=== PATIENT | female | born 1960 | race Caucasian/White ===

== ENCOUNTER 2018-10-26 15:07 | Emergency (ER) | payer MEDICAID ==
[~2018-10-26] VITALS: Ht 160 cm; Wt 49.9 kg
[2018-10-26 15:17] VITALS: BP_SYST 98
--- NOTE | 2018-10-26 15:32 | NUR ---
Patient to ER bed 3 to gown for evaluation. Side rails up. Report given to Juve PETERS.
--- NOTE | 2018-10-26 16:00 | NUR ---
Patient with a history of MS came into ED because [facility] trying to open the door but it was too heavy for her so she stated that she fell back back, rolled and hit the back of her head. She states she felt fine but then started having blurry vision. She came into the ED after having the blurry vision. Patient denies N/V/D. Patient states she has a headache of a 3/10. Patient states that she does not feel dizzy. No neuro deficits noted. Patient A&Ox4.
--- NOTE | 2018-10-26 16:05 | NUR ---
ER at bedside examining patient.
[2018-10-26] MEDS ORDERED: IBUPROFEN 400 MG TABLET PO ONE (16:15)
[2018-10-26 17:25] VITALS: BP_SYST 98
--- NOTE | 2018-10-26 17:35 | NUR ---
Patient given written and verbal discharge instructions and verbalizes understanding. ER MD discussed with patient the results and treatment provided. Patient in stable condition. ID arm band removed. Rx of levaquin 500mg given. Patient educated on pain management and to follow up with PMD. Pain Scale 0. Opportunity for questions provided and answered. Medication side effect fact sheet provided.
== END 2018-10-26 17:25 | disposition home or self-care (01) ==
LOC: SED 15:07
DX: E16.2 Hypoglycemia, unspecified (principal); N39.0 Urinary tract infection, site not specified; Z88.8 Allergy status to other drugs, medicaments and biological substances; W18.39XA Other fall on same level, initial encounter; Y93.89 Activity, other specified; Y92.89 Other specified places as the place of occurrence of the external cause; Y99.8 Other external cause status
CPT/HCPCS: 70450-TC; 82962; 99284

== ENCOUNTER 2019-03-30 17:47 | Inpatient (IN) | payer MEDICAID ==
[~2019-03-30] VITALS: Ht 160 cm; Wt 47.6 kg
[2019-03-30 17:50] VITALS: BP_SYST 127
[2019-03-30] MEDS ORDERED: NACL 0.9% 1,000 ML IV ONE (20:19)
[2019-03-30 20:53] LABS: BASOPHILS # (AUTO) 0.1 K/uL (0.0-0.2); BASOPHILS % (AUTO) 0.7 % (0.0-2.0); EOSINOPHILS # (AUTO) 0.2 K/uL (0.0-0.4); EOSINOPHILS % (AUTO) 2.8 % (0.0-4.0); HEMATOCRIT 44.2 % (36-48); HEMOGLOBIN 14.6 g/dL (12.0-16.0); LYMPHOCYTES # (AUTO) 1.6 K/uL (1.0-5.5); LYMPHOCYTES % (AUTO) 22.1 % (20.5-51.5); MEAN CORPUSCULAR HEMOGLOBIN 29 pg (27-31); MEAN CORPUSCULAR HGB CONC 33 % (32-36); MEAN CORPUSCULAR VOLUME 87 fL (79.0-98.0); MONOCYTES # (AUTO) 0.7 K/uL (0.0-1.0); MONOCYTES % (AUTO) 8.8 % (1.7-9.3); NEUTROPHILS # (AUTO) 4.9 K/uL (1.8-7.7); NEUTROPHILS % (AUTO) 65.6 % (40.0-70.0); PLATELET COUNT (AUTO) 301 K/uL (130-430); RED BLOOD CELL COUNT(AUTO) 5.06 MIL/uL (4.2-6.2); WHITE BLOOD COUNT (AUTO) 7.5 K/uL (4.8-10.8)
[2019-03-30 21:09] LABS: CALCIUM 8.9 mg/dL (8.4-11.0); CREATININE 0.54 mg/dL (0.55-1.30); POTASSIUM 3.5 mmol/L (3.5-5.1)
[2019-03-30 21:15] LABS: ALBUMIN 4.1 g/dL (3.4-4.8); TOTAL BILIRUBIN 0.3 mg/dL (0.0-1.0)
[2019-03-30 22:09] LABS: BILIRUBIN,URINE NEGATIVE (NEGATIVE); BLOOD, URINE NEGATIVE (NEGATIVE); CLARITY/URINE CLOUDY (CLEAR); COLOR,URINE YELLOW (YELLOW); GLUCOSE,URINE NEGATIVE (NEGATIVE); KETONES,URINE NEGATIVE (NEGATIVE); LEUKOCYTE ESTERASE ,URINE NEGATIVE (NEGATIVE); NITRITE, URINE POSITIVE (NEGATIVE); PROTEIN URINE NEGATIVE (NEGATIVE); UROBILINOGEN,URINE 0.2 (0.2-1.0)
[2019-03-30 22:18] LABS: INR 1.1 (0.8-1.2); PROTHROMBIN TIME 10.7 SECS (9.5-12.5)
[2019-03-30 22:19] LABS: BACTERIA,URINE MANY /HPF (None Seen); MUCUS,URINE None Seen /LPF (None Seen); RBC,URINE 0-3 /HPF (0-3)
[2019-03-30] MEDS ORDERED: MEROPENEM 1 GM IVPB PREMIX 50 ML IV ONE (23:45)
[2019-03-31] MEDS ORDERED: MEROPENEM 500 MG VIAL IV ONE (00:19)
[2019-03-31] MEDS ORDERED: methylPREDNISolone SOD SUCC/PF 62.5 MG/ML VIAL IVP ONE (01:15)
[2019-03-31] MEDS ORDERED: GABA800T PO (02:14)
[2019-03-31] MEDS ORDERED: BACL20TA PO (02:14)
[2019-03-31] MEDS ORDERED: MODA100T53 PO (02:14)
[2019-03-31] MEDS ORDERED: NOR10 PO (02:14)
[2019-03-31] MEDS ORDERED: TRAM50TA2 PO (02:14)
[2019-03-31] MEDS ORDERED: LISI-209 PO (02:14)
[2019-03-31 02:48] VITALS: BP_SYST 134
[2019-03-31] MEDS ORDERED: GABAPENTIN 400 MG CAPSULE PO ONE (04:15)
[2019-03-31] MEDS ORDERED: OXYBUTYNIN CHLORIDE 5 MG TABLET PO ONE (04:15)
[2019-03-31] MEDS ORDERED: traMADol HCL HCL 50 MG TABLET (ULTRAM) PO ONE (04:15)
[2019-03-31] MEDS ORDERED: OXYB5TAB11 PO (05:20)
[2019-03-31] MEDS ORDERED: LEVO25TA2 PO (05:20)
[2019-03-31] MEDS ORDERED: ACETAMINOPHEN 325 MG TABLET PO PRN (08:15)
[2019-03-31] MEDS ORDERED: ALBUTEROL SULFATE 0.083% 2.5 MG/3 ML VIAL.NEB INH PRN (08:15)
[2019-03-31] MEDS ORDERED: traMADol HCL HCL 50 MG TABLET (ULTRAM) PO PRN (08:15)
[2019-03-31] MEDS ORDERED: ONDANSETRON HCL 4 MG/2 ML VIAL IVP PRN (08:15)
[2019-03-31 08:25] VITALS: BP_SYST 113
[2019-03-31] MEDS: LISINOPRIL 5 MG TABLET PO SCH (10:54)
[2019-03-31] MEDS: amLODIPine BESYLATE 10 MG TABLET PO SCH (10:55)
[2019-03-31] MEDS: OXYBUTYNIN CHLORIDE 5 MG TABLET PO SCH ×3 (10:57→21:56)
[2019-03-31] MEDS: HYDROcodone/ACETAMIN 5-325 MG TAB (NORCO/ VICODIN) PO PRN ×2 (10:57→17:39)
[2019-03-31] MEDS: GABAPENTIN 400 MG CAPSULE PO SCH ×4 (10:58→21:54)
[2019-03-31] MEDS: BACLOFEN 10 MG TABLET PO SCH ×4 (10:59→21:54)
[2019-03-31] MEDS: MODAFINIL 100 MG TABLET (PROVIGIL) PO SCH (11:04)
[2019-03-31] MEDS: MEROPENEM 1 GM IVPB PREMIX 50 ML IV SCH ×3 (12:33→21:57)
[2019-03-31] MEDS: NACL 0.9% 1,000 ML IV SCH ×2 (12:35→17:36)
[2019-03-31 12:48] VITALS: BP_SYST 130
[2019-03-31 15:01] VITALS: BP_SYST 124
[2019-03-31] MEDS: traMADol HCL HCL 50 MG TABLET (ULTRAM) PO PRN (18:58)
[2019-03-31 19:30] VITALS: BP_SYST 111
[2019-03-31] MEDS: tiZANidine HCL 4 MG TABLET PO SCH (21:55)
[2019-04-01] VITALS (7 sets, daily range): BP systolic 101–130
[2019-04-01] MEDS: NACL 0.9% 1,000 ML IV SCH ×3 (05:06→21:21)
[2019-04-01] MEDS: LEVOTHYROXINE SODIUM 0.025 MG TABLET PO SCH (06:19)
[2019-04-01] MEDS: MEROPENEM 1 GM IVPB PREMIX 50 ML IV SCH ×3 (06:20→21:20)
[2019-04-01] MEDS: HYDROcodone/ACETAMIN 10-325 MG TAB PO PRN ×2 (08:28→23:26)
[2019-04-01] MEDS: amLODIPine BESYLATE 10 MG TABLET PO SCH ×2 (09:00→09:46)
[2019-04-01] MEDS: MODAFINIL 100 MG TABLET (PROVIGIL) PO SCH (09:44)
[2019-04-01] MEDS: GABAPENTIN 400 MG CAPSULE PO SCH ×4 (09:44→21:20)
[2019-04-01] MEDS: OXYBUTYNIN CHLORIDE 5 MG TABLET PO SCH ×3 (09:44→21:20)
[2019-04-01] MEDS: tiZANidine HCL 4 MG TABLET PO SCH ×3 (09:44→21:20)
[2019-04-01] MEDS: BACLOFEN 10 MG TABLET PO SCH ×4 (09:44→21:19)
[2019-04-01] MEDS: LISINOPRIL 5 MG TABLET PO SCH (09:45)
[2019-04-01 10:47] LABS: BASOPHILS % (AUTO) 0.8 % (0.0-2.0); EOSINOPHILS # (AUTO) 0.1 K/uL (0.0-0.4); EOSINOPHILS % (AUTO) 1.8 % (0.0-4.0); HEMATOCRIT 36.4 % (36-48); LYMPHOCYTES # (AUTO) 1.9 K/uL (1.0-5.5); LYMPHOCYTES % (AUTO) 31.6 % (20.5-51.5); MEAN CORPUSCULAR HEMOGLOBIN 29 pg (27-31); MEAN CORPUSCULAR HGB CONC 33 % (32-36); MEAN CORPUSCULAR VOLUME 88 fL (79.0-98.0); MONOCYTES # (AUTO) 0.5 K/uL (0.0-1.0); MONOCYTES % (AUTO) 7.5 % (1.7-9.3); NEUTROPHILS # (AUTO) 3.6 K/uL (1.8-7.7); NEUTROPHILS % (AUTO) 58.3 % (40.0-70.0); PLATELET COUNT (AUTO) 247 K/uL (130-430); RED BLOOD CELL COUNT(AUTO) 4.16 MIL/uL (4.2-6.2); RED CELL DISTRIBUTION WIDTH 14.8 % (9.0-15.0); WHITE BLOOD COUNT (AUTO) 6.1 K/uL (4.8-10.8)
[2019-04-01 11:11] LABS: CALCIUM 7.9 mg/dL (8.4-11.0); CREATININE 0.63 mg/dL (0.55-1.30); POTASSIUM 3.6 mmol/L (3.5-5.1); TOTAL BILIRUBIN 0.3 mg/dL (0.0-1.0)
[2019-04-01] MEDS: NICOTINE 7 MG/24 HR PATCH.TD24 TD SCH (12:42)
[2019-04-02] VITALS: BP_SYST 118
[2019-04-02] MEDS: MEROPENEM 1 GM IVPB PREMIX 50 ML IV SCH ×2 (06:16→13:32)
[2019-04-02] MEDS: LEVOTHYROXINE SODIUM 0.025 MG TABLET PO SCH (06:16)
[2019-04-02] MEDS: HYDROcodone/ACETAMIN 10-325 MG TAB PO PRN ×2 (06:39→11:01)
[2019-04-02 08:03] VITALS: BP_SYST 141
[2019-04-02] MEDS: BACLOFEN 10 MG TABLET PO SCH ×2 (08:44→13:32)
[2019-04-02] MEDS: GABAPENTIN 400 MG CAPSULE PO SCH ×2 (08:44→13:32)
[2019-04-02] MEDS: OXYBUTYNIN CHLORIDE 5 MG TABLET PO SCH (08:44)
[2019-04-02] MEDS: LISINOPRIL 5 MG TABLET PO SCH (08:45)
[2019-04-02] MEDS: amLODIPine BESYLATE 10 MG TABLET PO SCH (08:46)
[2019-04-02] MEDS: MODAFINIL 100 MG TABLET (PROVIGIL) PO SCH (08:46)
[2019-04-02] MEDS: traMADol HCL HCL 50 MG TABLET (ULTRAM) PO PRN (08:47)
[2019-04-02] MEDS: NACL 0.9% 1,000 ML IV SCH (08:48)
[2019-04-02] MEDS: NICOTINE 7 MG/24 HR PATCH.TD24 TD SCH (08:48)
[2019-04-02] MEDS: tiZANidine HCL 4 MG TABLET PO SCH (08:56)
[2019-04-02] MEDS ORDERED: LACTULOSE 20 GM/30 ML UDC PO ONE (10:30)
[2019-04-02 12:20] VITALS: BP_SYST 152
[2019-04-02 15:26] VITALS: BP_SYST 152
[2019-04-02] MEDS ORDERED: SULF1TAB48 PO (15:34)
[2019-04-02] MEDS ORDERED: DOCUSATE SODIUM 100 MG CAPSULE PO SCH (21:00)
== END 2019-04-02 15:50 | disposition home or self-care (01) | DRG 43 ==
LOC: SED 17:47 → STU 03-31 02:23 → SMU 04-01 10:48
PROVIDERS: ADMIT Internal Medicine Hospice and Palliative Medicine; ATTEND Internal Medicine Hospice and Palliative Medicine
DX: G35 Multiple sclerosis (principal); I10 Essential (primary) hypertension; N39.0 Urinary tract infection, site not specified; K57.90 Diverticulosis of intestine, part unspecified, without perforation or abscess without bleeding; N32.3 Diverticulum of bladder; N32.81 Overactive bladder; Z88.1 Allergy status to other antibiotic agents; Z88.8 Allergy status to other drugs, medicaments and biological substances; Z98.891 History of uterine scar from previous surgery
CPT/HCPCS: 36415; 70450-TC; 71045; 80053; 81000-TC; 83605; 84484; 85025; 85610-TC; 85730-TC; 87040-TC; 87086; 87186-TC; 93005; 96361; 96365; 96375; 97110-GP; 97116-GP; 97530-GP; 99285; G0378; J2185; J2930; J7030